=== PATIENT | female | born 1975 | race American Indian/Alaskan Native ===

== ENCOUNTER → 2019-10-24 11:26 | Outpatient (CLI) | payer OTHER, SELFPAY ==
--- NOTE | ~2019-10-24 | MM_ITS ---
EXAMINATION: MM screening [facility] BI w amelia HISTORY: Screening mammogram TECHNIQUE: Craniocaudal and mediolateral oblique 3-D tomosynthesis images were obtained and synthetic 2-D images were generated. CAD analysis was submitted and interpreted. COMPARISON: No prior mammogram is available for comparison at this institution. BREAST PARENCHYMAL COMPOSITION: There are scattered areas of fibroglandular density. FINDINGS: There is no evidence of suspicious mass, calcification, or architectural distortion to sugg est malignancy in either breast. There has been no suspicious interval change. IMPRESSION: 1. No mammographic evidence of malignancy. 2. Recommend routine screening mammography in one year. BI-RADS Category 1: Negative Reviewed, dictated and finalized at location A.
== END ==
PROVIDERS: Visit Provider Obstetrics & Gynecology
DX: Z12.31 Encounter for screening mammogram for malignant neoplasm of breast (principal)
CPT/HCPCS: 77063; 77067

== ENCOUNTER 2020-04-16 10:33 | Outpatient (CLI) | payer OTHER, SELFPAY | END 2020-04-16 10:34 | disposition home or self-care (01) | LOC: ANHCOVIDVC 10:33 | DX: Z23 Encounter for immunization (principal) | CPT/HCPCS: 0001A; 91300 ==

== ENCOUNTER 2020-05-07 10:31 | Outpatient (CLI) | payer OTHER, SELFPAY | END 2020-05-07 10:32 | disposition home or self-care (01) | LOC: ANHCOVIDVC 10:31 | DX: Z23 Encounter for immunization (principal) | CPT/HCPCS: 0002A; 91300 ==

== ENCOUNTER → 2020-12-22 11:34 | Outpatient (CLI) | payer BC, SELFPAY ==
--- NOTE | ~2020-12-22 | MM_ITS ---
EXAMINATION: MM screening [facility] BI w amelia HISTORY: Screening mammogram TECHNIQUE: Craniocaudal and mediolateral oblique 3-D tomosynthesis images were obtained and synthetic 2-D images were generated. CAD analysis was submitted and interpreted. COMPARISON: 10/24/2019 BREAST PARENCHYMAL COMPOSITION: There are scattered areas of fibroglandular density. FINDINGS: There is no evidence of suspicious mass, calcification, or architectural distortion to sugg est malignancy in either breast. There has been no suspicious interval change. IMPRESSION: 1. No mammographic evidence of malignancy. 2. Recommend routine screening mammography in one year. BI-RADS Category 1: Negative Reviewed, dictated and finalized at location A. CAL LABORATORY ASSISTANT
== END ==
PROVIDERS: Visit Provider Obstetrics & Gynecology
DX: Z12.31 Encounter for screening mammogram for malignant neoplasm of breast (principal)
CPT/HCPCS: 77063; 77067

== ENCOUNTER → 2022-04-29 11:15 | Outpatient (CLI) | payer BC, SELFPAY ==
--- NOTE | ~2022-04-29 | MM_ITS ---
EXAMINATION: MM screening [facility] BI w amelia HISTORY: Screening TECHNIQUE: Craniocaudal and mediolateral oblique 3-D tomosynthesis images were obtained and synthetic 2-D images were generated. CAD analysis was submitted and interpreted. COMPARISON: Comparison to multiple prior studies sequentially, with oldest reviewed study dated 10/23. BREAST PARENCHYMAL COMPOSITION: There are scattered areas of fibroglandular density. FINDINGS: There is no evidence of suspicious mass, calcification, or architectural distortion to sugg est malignancy in either breast. There has been no suspicious interval change. IMPRESSION: 1. No mammographic evidence of malignancy. 2. Recommend routine screening mammography in one year. BI-RADS Category 1: Negative Reviewed, dictated and finalized at location A.
== END ==
PROVIDERS: PCP Family Medicine; Visit Provider Obstetrics & Gynecology
DX: Z12.31 Encounter for screening mammogram for malignant neoplasm of breast (principal)
CPT/HCPCS: 77063; 77067

== ENCOUNTER 2023-02-22 10:19 | Outpatient (CLI) | payer BC, SELFPAY ==
--- NOTE | ~2023-02-22 | MMUS_ITS ---
EXAMINATION: MM diagnostic [facility]a BI w amelia, US breast RT limited HISTORY: Palpable right breast lump TECHNIQUE: Additional 3-D tomosynthesis images of the breasts were performed and synthetic 2-D images were generated. CAD analysis was submitted and interpreted. High resolution Limited right breast ult rasound was performed. COMPARISON: Comparison to multiple prior studies sequentially, with oldest reviewed study dated 10/23. BREAST PARENCHYMAL COMPOSITION: Breast composed of scattered areas of fibroglandular density FINDINGS: MAMMOGRAPHIC FINDINGS: There are no suspicious masses, calcifications or architectural distortion in either breast to sugges t malignancy. ULTRASOUND: Complete US of all 4 quadrants of the right breast and retroareolar region was reviewed. No suspiciou s masses or cysts are identified. There are normal-appearing right axillary lymph nodes. IMPRESSION: 1. No evidence for malignancy in either breast. 2. . Routine yearly screening mammogram and regular clinical breast examination are recommended. BI-RADS Category 1: Negative Reviewed, dictated and finalized at location A. CEMENTER IMPRESSION: 1. No evidence for malignancy in either breast. 2. . Routine yearly screening mammogram and regular clinical breast examination are recommended. BI-RADS Category 1: Negative
== END 2023-02-22 10:20 | disposition home or self-care (01) ==
PROVIDERS: PCP Family Medicine; Visit Provider Obstetrics & Gynecology
DX: N63.10 Unspecified lump in the right breast, unspecified quadrant (principal); R92.8 Other abnormal and inconclusive findings on diagnostic imaging of breast
CPT/HCPCS: 76642; 77062; 77066; G0279

== ENCOUNTER 2024-10-09 09:33 | Outpatient (CLI) | payer BC, SELFPAY ==
--- NOTE | ~2024-10-09 | MM_ITS ---
EXAMINATION: MM screening [facility] BI w amelia HISTORY: Screening TECHNIQUE: Craniocaudal and mediolateral oblique 3-D tomosynthesis images were obtained and synthetic 2-D images were generated. CAD analysis was submitted and interpreted. COMPARISON: Mammograms from 02/22/2023 and 04/29/2022 BREAST PARENCHYMAL COMPOSITION: There are scattered areas of fibroglandular density. FINDINGS: There is no evidence of suspicious mass, calcification, or architectural distortion in either breast to suggest malignancy. There has been no significant interval change. IMPRESSION: 1. No mammographic evidence of malignancy. Recommend routine screening mammography in one year. BI-RADS Category 1: Negative Reviewed, dictated and finalized at location Q. IMPRESSION: 1. No mammographic evidence of malignancy. Recommend routine screening mammogra phy in one year. BI-RADS Category 1: Negative
--- OUTSIDE RECORDS SUMMARY | 2024-10-09 09:53 | XMS_ITS | Clinical Summary ---
Author Organization [facility] Address [address] [place] [address] Phone Care Team Providers Care Electronics Detail Draftsperson Name Role Phone Unavailable Primary Care Provider Unavailabl e Allergies No known active allergies Medications vit-iron fumarate-fa (BEAR ) 28-0.8 mg Tablet Take 1 Tab by mouth daily. Active NIFEdipine (PROCARDIA XL) 30 mg Extended Release 24 hour tablet Take 1 Tablet (30 mg) by mouth daily. 30 Tablet 1 6 Active hydroCHLOROthia zide (MICROZIDE) 12.5 mg capsule Take 1 capsule (12.5 mg total) by mouth every morning. 90 Capsule 3 2 Active traMADoL (ULTRAM) 50 mg tablet TAKE 1-2 TABLETS BY MOUTH EVERY 6 HOURS NEEDED FOR PAIN. 20 Tablet 11/10/2021 10:29 AM CDT 2 Active ibuprofen (MOTRIN) 800 mg tablet Take 1 Tablet (800 mg) by mouth every 6 hours as needed. 20 Tablet 11/10/2021 10:29 AM CDT 2 Active dexAMETHasone (DECADRON) 2 mg tablet TAKE 2 TABLETS BY MOUTH NOW, 2 TABLETS BEFORE BED, AND 2 TABLETS DAILY FOR 3 DAYS. 10 Tablet 11/10/2021 10:29 AM CDT 2 Active flibanserin (Addyi) 100 mg Tablet Take 100 mg by mouth daily at bedtime. 90 Tablet 3 2 Active progesterone micronized (PROMETRIUM) 200 mg Capsule Take 1 Capsule (200 mg) by mouth daily. 30 Capsule 2 04/08/2022 12:18 PM OPHTHALMIC PHOTOGRAPHER 3 Active progesterone micronized (PROMETRIUM) 100 mg Capsule Take 1 capsule by mouth nightly 90 Capsule 07/02/2022 9:26 AM CDT 3 Active progesterone micronized (PROMETRIUM) 100 mg Capsule Take 1 Capsule (100 mg) by mouth nightly 90 Capsule 08/03/2022 2:14 PM CDT 3 Active progesterone micronized (PROMETRIUM) 100 mg Capsule Take 1 capsule by mouth nightly 90 Capsule 3 Active cholecalciferol 1,250 mcg (50,000 unit) Capsule Take 1 Capsule (50,000 Units) by mouth every 7 days. 12 Capsule 08/19/2022 2:09 PM CDT 3 Active progesterone micronized (PROMETRIUM) 100 mg Capsule TAKE 1 CAPSULE BY MOUTH NIGHTLY 90 Capsule 10/26/2022 11:24 AM CDT 3 Active progesterone micronized (PROMETRIUM) 100 mg Capsule Take 1 Capsule (100 mg) by mouth daily at bedtime. 90 Capsule 04/15/2023 11:18 AM OPHTHALMIC PHOTOGRAPHER 3 Active azithromycin (ZITHROMAX) 250 mg tablet Take 2 tablets by mouth today, then take 1 tablet by mouth daily for 4 days. 6 Tablet 02/02/2023 4:21 PM OPHTHALMIC PHOTOGRAPHER 3 Active ibuprofen (MOTRIN) 800 mg tablet Take 1 Tablet (800 mg) by mouth every 6 hours as needed. 20 Tablet 3 Active traMADoL (ULTRAM) 50 mg tablet Take 1-2 Tablets by mouth every 6 hours as needed for pain. 20 Tablet 3 Active telmisartan (MICARDIS) 40 mg Tablet Take 1 tablet (40 mg total) by mouth daily. 90 Tablet 3 05/11/2024 6:29 PM CDT 4 Active clobetasoL (TEMOVATE) 0.05 % Cream APPLY TO THE AFFECTED AREA TWICE DAILY FOR 10 DAYS. 45 Gram 1 07/27/2023 4:53 PM CDT 4 Active progesterone micronized (PROMETRIUM) 100 mg Capsule Take 1 capsule by mouth nightly 90 Capsule 08/17/2023 11:26 AM CDT 4 Active progesterone micronized (PROMETRIUM) 100 mg Capsule Take 1 Capsule (100 mg) by mouth daily at bedtime. 90 Capsule 11/29/2023 9:22 AM CDT 4 Active methylPREDNISol one (Medrol, Tone,) 4 mg Tablets, Dose Pack TAKE DIRECTED ON PACKAGE. 21 Tablet 02/02/2024 11:26 AM OPHTHALMIC PHOTOGRAPHER 4 Active latanoprost (XALATAN) 0.005 % solution INSTILL 1 DROP IN BOTH EYES AT BEDTIME. 7.5 mL 3 02/21/2024 9:48 AM OPHTHALMIC PHOTOGRAPHER 5 Active progesterone micronized (PROMETRIUM) 100 mg Capsule Take 1 Capsule (100 mg) by mouth daily at night. 90 Capsule 06/05/2024 6:57 PM CDT 5 Active celecoxib (CeleBREX) 200 mg capsule Take 1 Capsule (200 mg) by mouth daily. 30 Capsule 3 07/31/2024 7:25 PM CDT 5 Active progesterone micronized (PROMETRIUM) 100 mg Capsule Take 1 capsule by mouth nightly 90 Capsule 5 Active progesterone micronized (PROMETRIUM) 100 mg Capsule Take 1 Capsule (100 mg) by mouth daily at bedtime. 90 Capsule 09/11/2024 10:40 AM CDT 5 Active telmisartan (MICARDIS) 40 mg Tablet Take 1 tablet (40 mg total) by mouth daily. 90 Tablet 3 5 Active celecoxib (CeleBREX) 100 mg capsule Take 1 capsule (100 mg total) by mouth daily. 30 Capsule 3 09/28/2024 5:43 PM CDT 5 Active telmisartan (MICARDIS) 40 mg Tablet Take 1 tablet (40 mg total) by mouth daily. 90 Tablet 08/16/2024 6:20 PM CDT 5 09/28/19 25 Discontinu ed(Reorder ) Active Problems Problem Noted Date Diagnosed Date 07/13/15, gHTN 07/13/2015 Mild pre-eclampsia in third trimester 07/03/2015 03/15/2014, girl Yahaira, GHTN (no meds, n ormal labs) 03/15/2014 MIL (pit), gHTN (asx, labs wnl), gbs-, O+ 2014 12/3112/31/2012 Encounters Date Type Department Care Team Description 09/11/2024 External Device Data [facility] ABSTRACTION Provider, Abstract 08/22/2024 External Device Data [facility] ABSTRACTION Provider, Abstract 08/22/2024 External Device Data [facility] ABSTRACTION Provider, Abstract 07/25/2024 External Device Data [facility] ABSTRACTION Provider, Abstract from Last 3 Months Immunizations Immunization Administration Dates Next Due (ADACEL/BOOSTRIX)(10 YR UP) TDAP VACCINE, 0.5ML, IM 06/06/2015,01/02/2013 INFLUENZA VACCINE QUADRIVALENT 6 MOS UP PF IM Influenza Seasonal Unspecified Formulation IM ,11/30/2012 Family History Medical History Relation Name Comments Healthy Mother Relation Name Status Comments Father Mother Alive Social History Tobacco Use Types Packs/Day Years Used Date Smoking Tobacco: Never Smokeless Tobacco: Never Alcohol Use Standard Drinks/Week Comments No 0 (1 standard drink = 0.6 oz pur e alcohol) Comments No Sex and Gender Information Value Date Recorded Sex Assigned at Not on file Legal Sex Female 11:42 AM CDT Gender Identity Not on file Sexual Orientation Not on file Occupation Industry Job Start Date Job End Date Not on file Not on file Not on file Not on file Last Filed Vital Signs Vital Sign Reading Time Taken Comments Blood Pressure 126/88 07/15/2015 7:07 AM CDT per RN manual cuff Pulse 77 07/15/2015 6:58 AM CDT Temperature 36.9 C (98.4 F) 07/15/2015 6:58 AM CDT Respiratory Rate 16 07/15/2015 6:58 AM CDT Oxygen Saturation 99% 07/13/2015 4:4 7 PM CDT Inhaled Oxygen Concentration - - Weight 71.2 kg (157 lb) 07/13/2015 9:49 AM CDT Height 152.4 cm (5') 07/13/2015 9:49 AM CDT Body Mass Index 30.66 07/13/2015 9:49 AM CDT Plan of Treatment Health Maintenance Due Date Last Done Comments HEPATITIS B VACCINES (1 of 3 - 19+ 3-dose series) 1993 HPV/Cotest (21-29) 05/21/1995 CERVICAL CANCER SCREENING 2004 HPV/Cotest (30-65) 2004 PAP SMEAR 2004 BREAST CANCER SCREENING 2014 COLORECTAL SCREENING 05/21/2019 Colorectal Cancer Screening 05/21/2019 FIT-DNA Q 3 years 05/21/2019 FIT/FOBT Q 1 year 05/21/2019 Flex Sig/CT Colonography Q 5 years 05/21/2019 ZOSTER VACCINE (1 of 2) 2024 INFLUENZA VACCINE (#1) 2024 3, 01/04/2014, 11/30/2012 DTAP/TDAP/TD VACCINES (3 - T d or Tdap) 06/05/2025 06/06/2015, 01/02/2013 Insurance [employer] BLUE ACCESS/TRUE BLUE PPO RX PRIME THERAPEUTICS Commercial RX [employer] PLANS (INTERNAL) [facility] Advance Directives For more information, please contact: [phone] * Full Code (Latest Code Status on File) Date Activated Date Inactivated Comments 07/13/2015 8:51 PM 07/15/2015 12:44 PM * Full Code Date Activated Date Inactivated Comments 07/13/2015 10:47 AM 07/13/2015 8:51 PM * Full Code Date Activated Date Inactivated Comments 07/10/2015 10:30 AM 07/10/2015 4:36 PM * Full Code Date Activated Date Inactivated Comments 07/03/2015 3:09 PM 07/03/2015 7:24 PM * Full Code Date Activated Date Inactivated Comments 03/15/2014 6:32 AM 03/17/2014 12:45 PM
== END 2024-10-09 09:34 | disposition home or self-care (01) ==
LOC: ANHFOHIMG 09:36
PROVIDERS: PCP Family Medicine; Visit Provider Obstetrics & Gynecology
DX: Z12.31 Encounter for screening mammogram for malignant neoplasm of breast (principal)
CPT/HCPCS: 77063; 77067